=== PATIENT | female | born 1940 | race Caucasian/White ===

== ENCOUNTER 2022-10-12 11:13 | Outpatient (REF) | payer MEDICARE, SELFPAY ==
--- NOTE | ~2022-10-12 | US_ITS ---
EXAMINATION: US RETROPERITONEAL LIMITED (RENAL ONLY) CLINICAL INFORMATION: Gross hematuria. COMPARISON: Pelvic ultrasound same date. TECHNIQUE: Real-time imaging of the kidneys. FINDINGS: RIGHT KIDNEY: 11.4 x 4.7 x 5.8 cm (SAG x AP x TRV). The kidney is normal in size, contour, and echogenicity. Renal cortical thickness is normal. No calculi or focal parenchymal lesions. No hydronephrosis. LEFT KIDNEY: 12.1 x 5.8 x 6.0 cm (SAG x AP x TRV). The kidney is normal in size, contour, and echogenicity. Renal cortical thickness is normal. No calculi or focal parenchymal lesions. No hydronephrosis. There is mild pelvic fullness with suspicion for duplex collecting system. BLADDER: Prevoid bladder volume measures 343 mL and a postvoid bladder volume measures 14.6 mL. There is slight prominence of left uretero vesicle junction on transverse view but not seen on long axis. Underlying lesion is hard to exclude. Consider cystoscopy. 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 No echogenic renal calculi or hydronephrosis. Slight prominent left UV junction. Consider cystoscopy for further evaluation. Alternatively, a CT pelvis with and without contrast with attention to urinary bladder can be performed.
--- NOTE | ~2022-10-12 | US_ITS ---
EXAMINATION: US PELVIS CLINICAL INFORMATION: Vaginal bleeding. 82-year-old, postmenopausal. COMPARISON: None TECHNIQUE: Ultrasound of the pelvis is performed using both transabdominal transducers along with Doppler. FINDINGS: Uterus: The uterus is anteverted and measures 6.0 x 2.7 x 4.2 cm. The double wall endometrial thickness is 0.2 mm. The uterus is smooth in contour and has normal myometrial echogenicity. No visible fibroid. Adnexa: Both ovaries are not visualized, no large adnexal mass is visualized. US/US pelvic complete IMPRESSION: 1. Normal sonographic appearance of the uterus and endometrium. Please note, evaluation is limited in the absence of transvaginal imaging. 2. Both ovaries are not visualized, no large adnexal mass is visualized.
== END 2022-10-12 11:14 | disposition home or self-care (01) ==
LOC: HO.US 11:13
PROVIDERS: PCP Internal Medicine; Visit Provider Urology
DX: R31.0 Gross hematuria (principal); N39.46 Mixed incontinence; N39.8 Other specified disorders of urinary system
CPT/HCPCS: 76775; 76830; 76856

== ENCOUNTER 2023-05-05 12:40 | Outpatient (AMB) | payer MEDICARE, SELFPAY ==
--- NOTE | 2023-05-05 13:22 | AM.OFFWIN_ITS ---
Intake Vital Signs 05/05/23 13:24 BMI Reason not done Patient refused/unable BP 138/80 Blood Pressure Location Rt brachial Position Sitting Pulse 76 Pulse Source Pulse Oximeter Temp 97.9 F Temp Source Temporal Artery Scan Pulse Oximetry (%) 97 Intake Visit Reasons: EP Ear ache RT ear Intake Note: pt is here for c/o RT ear pain Patient Tobacco Use Status: Never used Tobacco Allergies No Known Allergies Allergy (Verified 05/05/23 13:23) Do you need a note to return to daycare/school/sports/work: No HPI EP Ear ache RT ear HPI Details 83-year-old [facility]. Denies any other sick symptoms or recent illnesses. [facility] Social History Patient Tobacco Use Status: Never used Tobacco Review of Systems Const All systems reviewed & are unremarkable except as noted in HPI and below Physical Exam Vital Signs: Last Vital Signs Temp 97.9 F 05/05/23 13:24 Pulse 76 05/05/23 13:24 BP 138/80 05/05/23 13:24 Pulse Ox 97 05/05/23 13:24 Const General: cooperative, healthy appearing, comfortable and no acute distress HEENT Head: Yes normal to inspection and Yes normocephalic Ears: hearing grossly normal bilaterally, TM normal on the left (wax in canal) and TM abnormal (right TM erythematous, bulging) General nose exam: Normal external nose present and Normal nasal mucous membranes and turbinates present Neck Neck: Yes no lymphadenopathy Resp Effort & Inspection: normal respiratory effort and able to speak in complete sentences Skin General skin exam: no rashes or lesions noted Extrem General: Yes no clubbing, cyanosis or edema Psych Appearance: grossly normal Mental Status: mental status grossly normal Speech and movement: Normal speech and movement present Assessment & Plan Assessment & Plan (1) Right acute otitis media: Code(s): H66.91 - Otitis media, unspecified, right ear Plan: Augmentin for right OM. Reviewed indications, use, possible s/e of medication. She has a large amount of cerumen in both ears. I attempted to remove some with a curette, however her ear canals are very sensitive and she could not tolerate this. I advised she utilize Debrox drops otc to soften the wax. She agrees to plan. If she does not improve with treatment she should return to the clinic for further evaluation. Medications: New amoxicillin-pot clavulanate 875-125 mg 1 tab PO BID 14 tabs 0RF 7 days H66.91 - Otitis media, unspecified, right ear Coding Level of Care Code Est Pt Level 3 (32927) Diagnoses Right acute otitis media H66.91
[2023-05-05 13:24] VITALS: BP 138/80; PULSE 76; TEMP 36.6; O2SAT 97
== END 2023-05-05 14:00 | disposition home or self-care (01) ==
PROVIDERS: PCP Internal Medicine; Visit Provider Nurse Practitioner Family
DX: H66.91 Otitis media, unspecified, right ear (principal)
CPT/HCPCS: 99213

== ENCOUNTER 2023-11-23 11:24 | Outpatient (AMB) | payer MEDICARE, SELFPAY ==
--- NOTE | 2023-11-23 11:51 | MHC.OFFWIV ---
Intake Vital Signs 11/23/23 11:52 BMI Reason not done Patient refused/unable BP 160/80 H Blood Pressure Location Lt brachial Position Sitting Pulse 75 Pulse Source Pulse Oximeter Temp 98.0 F Temp Source Temporal Artery Scan Pulse Oximetry (%) 96 Oxygen Delivery Method Room Air Intake Visit Reasons: EP cough [id number] Intake Note: pt is here for cough since Patient Tobacco Use Status: Never used Tobacco Allergies No Known Allergies Allergy (Verified 11/23/23 12:43) Do you need a note to return to daycare/school/sports/work: No HPI EP cough [id number] HPI Details Patient presents for a sick visit. Reporting symptoms of sinus congestion, sore throat and difficulty swallowing. Low-grade fever. No family member is sick. No recent travel. Patient reports symptoms of malaise and fatigue. [facility] Social History Patient Tobacco Use Status: Never used Tobacco Physical Exam Vital Signs: Last Vital Signs Temp 98.0 F 11/23/23 11:52 Pulse 75 11/23/23 11:52 BP 160/80 H 11/23/23 11:52 Pulse Ox 96 11/23/23 11:52 Oxygen Delivery Method Room Air 11/23/23 11:52 Const General: cooperative and healthy appearing Nutritional Appearance: well nourished Orientation/consciousness: patient oriented x3 Limitations: no limitations HEENT Head: Yes normal to inspection Eyes General: appearance normal, both eyes and all related structures Neck Neck: Yes normal visual inspection Chest Chest palpation & inspection: normal palpation of entire chest wall Resp Effort & Inspection: normal respiratory effort Neuro General: patient oriented x3 Assessment & Plan Assessment & Plan (1) Upper respiratory tract infection: Code(s): J06.9 - Acute upper respiratory infection, unspecified Plan: Antibiotics ordered. Increase fluid intake. Tylenol for aches and pains. If symptoms worsen, follow-up here for a recheck. Coding Level of Care Code Est Pt Level 3 (82401) Diagnoses Upper respiratory tract infection J06.9
[2023-11-23 11:52] VITALS: BP 160/80; PULSE 75; TEMP 36.7; O2SAT 96
== END 2023-11-23 12:54 | disposition home or self-care (01) ==
PROVIDERS: PCP Internal Medicine; Visit Provider Internal Medicine
DX: J06.9 Acute upper respiratory infection, unspecified (principal)
CPT/HCPCS: 99213

== ENCOUNTER 2024-01-17 11:43 | Outpatient (AMB) | payer MEDICARE, SELFPAY ==
[2024-01-17 12:19] VITALS: BP 120/80; PULSE 62; O2SAT 98; BMI 37.1
--- NOTE | 2024-01-17 12:19 | A.OFFPC_ITS ---
Vital Signs 01/17/24 12:19 Height 5 ft 1 in Weight 196 lb 6 oz BMI 37.1 BP 120/80 Blood Pressure Location Rt brachial Position Sitting Pulse 62 Pulse Source Pulse Oximeter Pulse Oximetry (%) 98 Oxygen Delivery Method Room Air Intake Visit Reasons: TOUR CONSULTANT Est care Intake Note: pt is here for new patient, est care Odd Shoe Examiner Required: No Allergies No Known Allergies Allergy (Verified 01/17/24 12:19) Medication List - Last Reconciled 01/17/24 by Bhavana Fallon MD anastrozole mg PO ascorbic acid (vitamin C) mg PO coenzyme Q10 (Ultra CoQ10) 75 mg PO DAILY furosemide 20 mg PO DAILY omeprazole mg PO simvastatin mg PO Tobacco use date assessed: 01/17/24 Fall risk assessment: No Falls in past year Last assessed Fall Risk: 01/17/24 Dental Screening Dental Screen Date: 01/17/24 Did you have a dental visit in the last 12 months?: Yes Did you have a dental problem in the last 6 months where you did not have access to dental care?: No Was dental information given to patient?: Patient has dentist HPI TOUR CONSULTANT Est care HPI Details Pt presents for TOUR CONSULTANT visit. She used to see a doctor in [place] but moved to [place] recently. Past medical history includes hyperlipidemia chronic GERD lower extremity edema controlled on current medications. She was diagnosed with right breast cancer status post lumpectomy and has been taking anastrozole. Patient follows up with [facility]. [facility] Surgical History H/O: knee surgery S/P appendectomy Family History Mother Diabetes Father Heart problem Social History (Updated 01/17/24 @ 13:32 by Bhavana Fallon MD) Household Members Other:: Lives alone, , 4 children, Alcohol intake: never Patient Tobacco Use Status: Never used Tobacco Cognitive needs: No Hearing needs: No Vision needs: No Questionnaire PHQ-9 Over the last 2 weeks, how often have you been bothered by any of the following problems? 1. Little interest or pleasure in doing things: not at all 2. Feeling down, depressed, or hopeless: not at all 3. Trouble falling or staying asleep, or sleeping too much: not at all 4. Feeling tired or having little energy: not at all 5. Poor appetite or overeating: not at all 6. Feeling bad about yourself - or that you are a failure or have let yourself or your family down: not at all 7. Trouble concentrating on things, such as reading the newspaper or watching television: not at all 8. Moving or speaking so slowly that other people could have noticed. Or the opposite - being so fidgety or restless that you have been moving around a lot more than usual: not at all 9. Thoughts that you would be better off or of hurting yourself in some way: not at all Total score: 0 Depression Screening Interpretation: Negative Depression Screening Done: Yes 83771 - PHQ-9 Billing: Yes Source: Developed by Drs. Andrew Munoz, Keeley Trinidad, Mike lAaniz and colleagues, with an educational jeanette from [email or web address]. Thrive Questionnaire Date Thrive assessed: 01/17/24 I am a: Patient What is your living situation today?: I have a steady place to live Within the past 12 months, did the food you bought not last and you didn't have the money to get more?: Never true Within the past 12 months, did you worry whether your food would run out before you got money to buy more?: Never true Do you have trouble paying for medicines?: No Do you have trouble getting transportation to medical appointments?: No Do you have trouble paying your heating and electricity bill?: No Do you have trouble taking care of your child, family member or friend?: No Do you have trouble with day-to-day activities such as bathing, preparing meals, shopping, managing finances, etc.?: No Are you currently unemployed and looking for a job?: No Are you interested in more education?: No Please select the resources that you would like help with: None Currently or been in a relationship where the following occur: no concerns reported THRIVE Score: 0 AUDIT C Alcohol Use Questionnaire (AUDIT-C) 1. How often do you have a drink containing alcohol?: Never 3. How often do you have six or more drinks on one occasion?: Never Total Score: 0 Score Reviewed/Action Taken: Yes SOHAIL-7 AMB Questionnaire SOHAIL-7 Date SOHAIL - 7 assessed: 01/17/24 Feeling nervous, anxious, or on edge: 0 = Not at all Not being able to stop or control worryin = Not at all Worrying too much about different things: 0 = Not at all Trouble relaxin = Not at all Being so restless that it is hard to sit still: 0 = Not at all Becoming easily annoyed or irritable: 0 = Not at all Feeling afraid as if something awful might happen: 0 = Not at all Total SOHAIL-7 score (0-4 normal; 5-9 mild; 10-14 moderate; 15-21 severe): 0 Source: Developed by Drs. Andrew Munoz, Keeley Trinidad, Mike Alaniz and colleagues, with an educational jeanette from [email or web address]. SOHAIL-7 Assessment Billing SOHAIL-7 Assessment Tool: SOHAIL-7 Assessment 18243 Review of Systems Const All systems reviewed & are unremarkable except as noted in HPI and below Eyes Reports no additional complaints ENT Reports no additional complaints Card Reports no additional complaints Resp Reports no additional complaints GI Reports no additional complaints Reports no additional complaints Physical exam (Primary Care) Vital Signs: Last Vital Signs Pulse 62 01/17/24 12:19 BP 140/90 H 01/17/24 12:19 Pulse Ox 98 01/17/24 12:19 Oxygen Delivery Method Room Air 01/17/24 12:19 BMI result Body Mass Index 37.1 Tobacco/Smoking Status: Tobacco use Status Tobacco use date assessed 01/17/24 01/17/24 12:24 Patient Tobacco Use Status Never used Tobacco 01/17/24 12:24 PHQ-9: PHQ-9 Score PHQ-9: Total score 0 01/17/24 12:24 Depression Screening Interpretation: Negative Thrive Assessment: Date of Thrive Assessment Date Thrive assessed 01/17/24 01/17/24 12:24 Currently or been in a relationship where the following occur: no concerns reported Const General: no acute distress HENMT Head: Yes normal to inspection Ears: hearing grossly normal bilaterally General nose exam: Normal external nose present Face and sinus: Yes normal facial exam Throat: Yes posterior oropharynx normal Eyes General: appearance normal, both eyes and all related structures Resp Effort & Inspection: normal respiratory effort Auscultation: clear to auscultation bilaterally Cardio Rhythm: regular rhythm Heart sounds: S1 normal heart sound present and S2 normal heart sound present GI Inspection: Yes normal to inspection Palpation (GI): Soft to palpation Percussion: Yes normal to percussion Auscultation: normal bowel sounds Assessment and Plan Assessment & Plan (1) Breast CA: Comment: R breast 07/08 f/u [facility] on Anastrazole Code(s): C50.919 - Malignant neoplasm of unspecified site of unspecified female breast Plan: Follow-up with oncology (2) Hyperlipidemia: Code(s): E78.5 - Hyperlipidemia, unspecified Plan: Continue statin (3) Edema: Code(s): R60.9 - Edema, unspecified Plan: Continue Lasix (4) GERD (gastroesophageal reflux disease): Code(s): K21.9 - Gastro-esophageal reflux disease without esophagitis Plan: Continue PPI (5) Overweight: Code(s): E66.3 - Overweight (6) Heart murmur: Comment: Echo at [facility] will obtain results Code(s): R01.1 - Cardiac murmur, unspecified Plan: Obtain records from [facility] (7) Vitamin D deficiency: Code(s): E55.9 - Vitamin D deficiency, unspecified Orders: Orders Complete Blood Count Auto Diff 4 Months C50.919 - Malignant neoplasm of unspecified site of unspecified female breast, E78.5 - Hyperlipidemia, unspecified, R60.9 - Edema, unspecified Vitamin D 25-OH (D2 and D3) 4 Months E55.9 - Vitamin D deficiency, unspecified Comprehensive Stout. Panel Fast Today C50.919 - Malignant neoplasm of unspecified site of unspecified female breast, E78.5 - Hyperlipidemia, unspecified, R60.9 - Edema, unspecified Lipid Panel 4 Months C50.919 - Malignant neoplasm of unspecified site of unspecified female breast, E78.5 - Hyperlipidemia, unspecified, R60.9 - Edema, unspecified TSH reflex Free T4 4 Months C50.919 - Malignant neoplasm of unspecified site of unspecified female breast, E78.5 - Hyperlipidemia, unspecified, R60.9 - Edema, unspecified Coding Level of Care Code New Pt Level 4 (61176) Diagnoses Breast CA C50.919 Hyperlipidemia E78.5 Edema R60.9 GERD (gastroesophageal reflux disease) K21.9 Overweight E66.3 Heart murmur R01.1 Vitamin D deficiency E55.9 Additional Codes SOHAIL-7 Assessment Billing - SOHAIL-7 Assessment Tool: SOHAIL-7 Assessment 45459 ([id number])
== END 2024-01-17 13:12 | disposition home or self-care (01) ==
PROVIDERS: PCP Internal Medicine; Visit Provider Internal Medicine
DX: C50.919 Malignant neoplasm of unspecified site of unspecified female breast (principal); E78.5 Hyperlipidemia, unspecified; R60.9 Edema, unspecified; K21.9 Gastro-esophageal reflux disease without esophagitis; E66.3 Overweight; R01.1 Cardiac murmur, unspecified; E55.9 Vitamin D deficiency, unspecified
CPT/HCPCS: 99204; 99214

== ENCOUNTER 2024-04-29 09:25 | Outpatient (AMB) | payer MEDICARE, SELFPAY ==
--- NOTE | 2024-04-29 10:12 | AM.OFFWIN_ITS ---
Intake Vital Signs 04/29/24 10:23 Weight 195 lb BP 136/80 Blood Pressure Location Rt brachial Position Sitting Pulse 76 Pulse Source Pulse Oximeter Temp 98.6 F Temp Source Oral Pulse Oximetry (%) 97 Oxygen Delivery Method Room Air Intake Visit Reasons: EP cough, aches Intake Note: Patient here for cough that started Wednesday and worsened by , fatigue and body aches. Patient Tobacco Use Status: Never used Tobacco Allergies No Known Allergies Allergy (Verified 04/29/24 10:24) Do you need a note to return to daycare/school/sports/work: No HPI HPI Comments History of Present Illness Details 84 y/o female patient who presents to [facility] walk in clinic with c/o cough, SOB and wheezing since Wednesday. [facility] Surgical History H/O: knee surgery S/P appendectomy Family History Mother Diabetes Father Heart problem Social History (Updated 01/17/24 @ 13:32 by Bhavana Fallon MD) Household Members Other:: Lives alone, , 4 children, Alcohol intake: never Patient Tobacco Use Status: Never used Tobacco Cognitive needs: No Hearing needs: No Vision needs: No Review of Systems Const All systems reviewed & are unremarkable except as noted in HPI and below Physical Exam Vital Signs: Last Vital Signs Temp 98.6 F 04/29/24 10:23 Pulse 76 04/29/24 10:23 BP 136/80 04/29/24 10:23 Pulse Ox 97 04/29/24 10:23 Oxygen Delivery Method Room Air 04/29/24 10:23 Const General: cooperative and comfortable Nutritional Appearance: obese Orientation/consciousness: patient oriented x3 HEENT Head: Yes normocephalic Ears: external ears normal and TM's normal bilaterally General nose exam: Normal external nose present Face and sinus: Yes sinuses nontender Mouth: moist mucous membranes Throat: Yes postnasal drainage Resp Effort & Inspection: normal respiratory effort, able to speak in complete sentences and Actively coughing Auscultation: no crackles, no rales, rhonchi and wheezes Cardio Heart sounds: S1 normal heart sound present and S2 normal heart sound present Neuro General: patient oriented x3, gait normal and moves all extremities Psych Speech and movement: Normal speech and movement present Assessment & Plan Assessment & Plan (1) Upper respiratory tract infection: Code(s): J06.9 - Acute upper respiratory infection, unspecified Qualifiers: URI type: unspecified URI Qualified Code(s): J06.9 - Acute upper respiratory infection, unspecified Plan: Ordered SARs (2) Cough in adult: Code(s): R05.9 - Cough, unspecified Plan: OTC cough remedies Hydrate with warm water Orders: Orders SARS-CoV2/FLU/RSV Today J06.9 - Acute upper respiratory infection, unspecified Medications: New benzonatate 100 mg PO TID 90 caps 0RF R05.9 - Cough, unspecified prednisone 50 mg PO DAILY 5 tabs 0RF 5 days doxycycline hyclate 100 mg PO BID 20 caps 0RF 10 days J06.9 - Acute upper respiratory infection, unspecified, R05.9 - Cough, unspecified Coding Level of Care Code Est Pt Level 3 (96451) Diagnoses Upper respiratory tract infection, unspecified type J06.9 URI type: unspecified URI Cough in adult R05.9 Time Spent (min) 15
[2024-04-29 10:23] VITALS: BP 136/80; PULSE 76; TEMP 37; O2SAT 97
== END 2024-04-29 10:53 | disposition home or self-care (01) ==
PROVIDERS: PCP Internal Medicine; Visit Provider Nurse Practitioner Family
DX: J06.9 Acute upper respiratory infection, unspecified (principal); R05.9 Cough, unspecified
CPT/HCPCS: 99213

== ENCOUNTER 2024-04-29 10:23 | Outpatient (REF) | payer MEDICARE, SELFPAY ==
[2024-04-29 12:22] LABS: Influenza A PCR NEGATIVE (Negative); Influenza B PCR NEGATIVE (Negative); Resp Syncy Virus RNA Qual PCR NEGATIVE (Negative); SARS COV2 PCR INHOUSE NEGATIVE (Negative)
== END 2024-04-29 10:24 | disposition home or self-care (01) ==
LOC: HO.LNP 10:23
PROVIDERS: Visit Provider Nurse Practitioner Family
DX: J06.9 Acute upper respiratory infection, unspecified (principal)
CPT/HCPCS: 0241U

== ENCOUNTER 2024-10-30 11:21 | Outpatient (AMB) | payer MEDICARE, SELFPAY ==
--- NOTE | 2024-10-30 12:02 | A.OFFVIS_ITS ---
Intake Vital Signs 10/30/24 12:03 Height 5 ft 1 in Weight 194 lb BMI 36.7 BP 136/76 Blood Pressure Location Lt brachial Position Sitting Respiration 20 Pulse 72 Pulse Source Pulse Oximeter Temp 98.4 F Temp Source Oral Pulse Oximetry (%) 96 Oxygen Delivery Method Room Air Intake Visit Reasons: SWV G0439 Allergies No Known Allergies Allergy (Verified 10/30/24 12:03) Medication List - Last Reconciled 10/30/24 by Bhavana Fallon MD amoxicillin 2,000 mg (4 x 500 mg) PO ONCE anastrozole mg PO ascorbic acid (vitamin C) mg PO coenzyme Q10 (Ultra CoQ10) 75 mg PO DAILY furosemide 20 mg PO DAILY omeprazole 20 mg PO DAILY simvastatin 10 mg PO DAILY HPI SWV G0439 HPI Details Initiated the conversation about Advanced Directives. Advanced Directives help? patients prepare for current and future decisions about their medical treatment? and place of care. Discussed with patient that it is a process where a patients? current condition and prognosis are reviewed, their wishes for information? regarding their illness are elicited, and likely medical dilemmas are presented? and options discussed. The form can be amended as ne eded, reviewed yearly and? make changes as needed IPPE/AWV ? year old presents? for her ? Annual? Wellness Visit, initial visit.? Medical / Social History Reviewed? Past Medical History ?Yes? . ? [place]? of Care / Care Team list updated ?Yes . ? Surgical/Hospitalization? History ?Yes . ? Current Medications? (including OTC and supplements) ?Yes . ? Family History ?Yes? . ? Tobacco? Control form ?Yes . ? AUDIT-C (Alcohol use) form? ?Yes . ? Illicit drug use in Social? History ?Yes . ? Current diagnosis of? depression? ?No ? Appropriate PHQ2/PHQ9? completed ?Yes . ? Data entered by ?Medical? Retort Loader and reviewed by provider ? Fall Risk ? Fall? History? Have you had any falls with? injury in the past year? ?No . ? Have you had two or more? falls in the past year? ?No . ? Fall Risk Assessment: ?No? falls in the past year . ? HRA filled out by? the patient, reviewed by Provider and scanned. ? IPPE/AWV ? Balance? [place]? ?Yes . ? Tandem? walk ?Yes . ? Walk and? Turn ?Yes . ? Rise from? sit to stand ?Yes . ?Vision? Corrective? lens ?Yes ? Vision? screen ? Up-to-date, has an appointment [] for vision? screening and glaucoma screening ?Hearing? Whisper? test ?pass .? Initiated the conversation about Advanced Directives. Advanced Directives help? patients prepare for current and future decisions about their medical treatment? and place of care. Discussed with patient that it is a process where a patients? current condition and prognosis are reviewed, their wishes for information? regarding their illness are elicited, and likely medical dilemmas are presented? and options discussed. The form can be amended as needed, reviewed yearly and? make changes as needed Written? Plan?Completed. See Patient? Documents. [facility] Surgical History H/O: knee surgery S/P appendectomy Family History Mother Diabetes Father Heart problem Social History (Updated 01/17/24 @ 13:32 by Bhavana Fallon MD) Household Members Other:: Lives alone, , 4 children, Alcohol intake: never Patient Tobacco Use Status: Never used Tobacco Cognitive needs: No Hearing needs: No Vision needs: No Questionnaire Medicare Wellness Checkup What is your age?: 78 or older What gender do you identify with?: female During the past 4 weeks, how much have you been bothered by emotional problems such as feeling anxious, depressed, irritable, sad or downhearted, and blue?: slightly During the past 4 weeks, has your physical & emotional health limited your social activities with family, friends, neighbors, or groups?: not at all During the past 4 weeks, how much bodily pain have you generally had?: mild pain During the past 4 weeks, was someone available to help you if you needed & wanted help?: yes, some During the past 4 weeks, what was the hardest physical activity you could do for at least 2 minutes?: moderate Can you get to places out of walking distance without help? (For eg., can you travel alone on buses, taxis or drive your car?): Yes Can you go shopping for groceries or clothes without someone's help?: Yes Can you prepare your own meals?: Yes Can you do your housework without help?: Yes Because of any health problems, do you need the help of another person with your personal care needs such as eating, bathing, dressing or getting around the house?: No Can you handle your own money without help?: Yes During the past 4 weeks, how would you rate your health in general?: good During the past 4 weeks how have things been going for you?: pretty well Are you having difficulties driving your car?: no Do you always fasten your seat belt when you are in a car?: yes, usually During past 4 weeks, have you been bothered by the following: never: Sexual problems?, Trouble eating well? and Problems using the telephone? and seldom: Falling or dizzy when standing up, Teeth or denture problems? and Tiredness or fatigue? Have you fallen 2 or more times in the past year?: No Are you afraid of falling?: Yes Are you a smoker?: no During the past 4 weeks, how many drinks of wine, beer, or other alcoholic beverages did you have?: no alcohol at all Do you exercise for about 20 minutes 3 or more times a week?: no, I usually do not exercise this much Have you been given information to help with the following?: yes: Hazards in your house that might hurt you? and no: Keeping track of your medications? How often do you have trouble taking medicines the way you have been told to take them?: I always take medicine as prescribed How confident are you that you can control & manage most of your health problems?: very confident What is your race?: White Mini Mental State Exam (MMSE) Orientation What is the (year) (season) (date) (day) (month)?: year, season, date, day and month Where are we (state) (county) (town or city) (hospital) (floor)?: state, county, town or city, hospital/clinic and floor Registration Name of 3 unrelated objects clearly and slowly, then ask patient to repeat all 3 of them. (1st repeat determines score. Make sure they can repeat all three): object 1, object 2 and object 3 Attention & Calculation (CHOOSE ONE) Spell WORLD backwards (DLROW): 5 letters Recall Ask patient to repeat the 3 items from question #3.: object 1, object 2 and object 3 Language Show patient a wristwatch & ask what it is. Repeat for pencil.: watch and pencil Ask the patient to repeat the phrase 'No ifs, ands, or buts' after you.: correct Ask the patient to 'take a piece of paper with their right hand' 'fold paper in half' 'place paper on floor': take paper in right hand, fold paper in half and place paper on floor Print the sentence 'CLOSE YOUR EYES' on a piece. If patient actually closes eyes then score.: followed written direction Give patient a blank piece of paper & ask to write a sentence. Score if it contains a noun & verb.: sentence contains subject and verb Score Score: 29 Activity of Daily Living Bathing - sponge bath, tub bath or shower: receives no assistance (gets in/out by self, if usual bathing means Dressing - getting clothes from closets & drawers, including inner/outer garments & fasteners.: gets clothes & gets completely dressed without help Toileting - going to the 'toilet room' for urine/bowel elimination & cleaning self/arranging clothes: goes to toilet room, cleans self, arranges clothes without help Transfer: moves in & out of bed and chair without help (may use support object) Continence: controls urination/bowel movements completely by self Feeding: feeds self without help Total Score: 0 Information obtained from: patient Using telephone: independent Traveling: independent Shopping: independent Preparing meals: independent Housework: independent Taking medicine: independent Managing money: independent PHQ-9 Over the last 2 weeks, how often have you been bothered by any of the following problems? 1. Little interest or pleasure in doing things: not at all 2. Feeling down, depressed, or hopeless: not at all 3. Trouble falling or staying asleep, or sleeping too much: not at all 4. Feeling tired or having little energy: not at all 5. Poor appetite or overeating: not at all 6. Feeling bad about yourself - or that you are a failure or have let yourself or your family down: not at all 7. Trouble concentrating on things, such as reading the newspaper or watching television: not at all 8. Moving or speaking so slowly that other people could have noticed. Or the opposite - being so fidgety or restless that you have been moving around a lot more than usual: not at all 9. Thoughts that you would be better off or of hurting yourself in some way: not at all Total score: 0 Depression Screening Interpretation: Negative Depression Screening Done: Yes 57803 - PHQ-9 Billing: Yes Source: Developed by Drs. Andrew Munoz, Keeley Trinidad, Mike Alaniz and colleagues, with an educational jeanette from [employer]. Review of Systems Const All systems reviewed & are unremarkable except as noted in HPI and below Eyes Reports no additional complaints ENT Reports no additional complaints Card Reports no additional complaints Resp Reports no additional complaints GI Reports no additional complaints Reports no additional complaints Physical Exam Vital Signs: Last Vital Signs Temp 98.4 F 10/30/24 12:03 Pulse 72 10/30/24 12:03 Resp 20 10/30/24 12:03 BP 136/76 10/30/24 12:03 Pulse Ox 96 10/30/24 12:03 Oxygen Delivery Method Room Air 10/30/24 12:03 BMI result Body Mass Index 36.7 Const General: no acute distress HEENT Head: Yes normal to inspection Ears: hearing grossly normal bilaterally Eyes General: appearance normal, both eyes and all related structures Neck Neck: Yes no lymphadenopathy and Yes supple Resp Effort & Inspection: normal respiratory effort Auscultation: clear to auscultation bilaterally Cardio Rhythm: regular rhythm Heart sounds: S1 normal heart sound present and S2 normal heart sound present Extrem General: Yes no clubbing, cyanosis or edema Assessment & Plan Assessment & Plan (1) Breast CA: Comment: R breast 07/08, L breast 08/2024, s/p lumpectomy INTRADUCTAL CARCINOMA, f/u [facility] Oncology on Anastrazole Code(s): C50.919 - Malignant neoplasm of unspecified site of unspecified female breast Plan: f/u with oncology (2) Hyperlipidemia: Code(s): E78.5 - Hyperlipidemia, unspecified Plan: Continue statin (3) Vitamin D deficiency: Code(s): E55.9 - Vitamin D deficiency, unspecified Plan: Continue vitamin-D (4) DM type 2 (diabetes mellitus, type 2): Comment: A1C 7.9 12/2023 [facility], Code(s): E11.9 - Type 2 diabetes mellitus without complications Plan: ADA diet increase physical activity weight loss discussed with the patient. She will return for fasting blood work including A1c. Patient declined taking medications for diabetes. She will return in 6 months with a fasting labs before (5) Osteopenia: Comment: DEXA AT [facility] 2023, the lowest T score -2.1, zoledronic acid infusion by [facility] oncology Code(s): M85.80 - Other specified disorders of bone density and structure, unspecified site Plan: Continue vitamin-D supplement and weight-bearing exercise Orders: Orders Hemoglobin A1c Today C50.919 - Malignant neoplasm of unspecified site of unspecified female breast, E55.9 - Vitamin D deficiency, unspecified, E78.5 - Hyperlipidemia, unspecified, R73.9 - Hyperglycemia, unspecified Microalbumin, Random (w Creat) Today C50.919 - Malignant neoplasm of unspecified site of unspecified female breast, E55.9 - Vitamin D deficiency, unspecified, E78.5 - Hyperlipidemia, unspecified, R73.9 - Hyperglycemia, unspecified TSH reflex Free T4 Today C50.919 - Malignant neoplasm of unspecified site of unspecified female breast, E55.9 - Vitamin D deficiency, unspecified, E78.5 - Hyperlipidemia, unspecified, R73.9 - Hyperglycemia, unspecified Vitamin D 25-OH Total Today C50.919 - Malignant neoplasm of unspecified site of unspecified female breast, E55.9 - Vitamin D deficiency, unspecified, E78.5 - Hyperlipidemia, unspecified, R73.9 - Hyperglycemia, unspecified Hemoglobin A1c 6 Months C50.919 - Malignant neoplasm of unspecified site of unspecified female breast, E11.9 - Type 2 diabetes mellitus without complications, E66.3 - Overweight, R73.9 - Hyperglycemia, unspecified Comprehensive [place]. Panel Fast 6 Months C50.919 - Malignant neoplasm of unspecified site of unspecified female breast, E11.9 - Type 2 diabetes mellitus without complications, E66.3 - Overweight, R73.9 - Hyperglycemia, unspecified Comprehensive [place]. Panel Fast Today C50.919 - Malignant neoplasm of unspecified site of unspecified female breast, E55.9 - Vitamin D deficiency, unspecified, E78.5 - Hyperlipidemia, unspecified, R73.9 - Hyperglycemia, unspecified Complete Blood Count Auto Diff Today C50.919 - Malignant neoplasm of unspecified site of unspecified female breast, E55.9 - Vitamin D deficiency, unspecified, E78.5 - Hyperlipidemia, unspecified, R73.9 - Hyperglycemia, unspecified Lipid Panel Today C50.919 - Malignant neoplasm of unspecified site of unspecified female breast, E55.9 - Vitamin D deficiency, unspecified, E78.5 - Hyperlipidemia, unspecified, R73.9 - Hyperglycemia, unspecified Lipid Panel 6 Months C50.919 - Malignant neoplasm of unspecified site of unspecified female breast, E11.9 - Type 2 diabetes mellitus without complications, E66.3 - Overweight, R73.9 - Hyperglycemia, unspecified Quality Reporting (2019) Depression/Bipolar (159/160/161/177) PHQ-9: Total score: 0 Coding Level of Care Code Medicare Subsequent (G0439) Diagnoses Breast CA C50.919 Hyperlipidemia E78.5 Vitamin D deficiency E55.9 DM type 2 (diabetes mellitus, type 2) E11.9 Osteopenia M85.80 CPT Codes Advance Care Planning - Advance Care Planning discussion: On file, no changes ([id number]) Advance Care Planning - Time spent: 1-15 minutes, on File ([id number]) Additional Codes PHQ-9 - 16949 - PHQ-9 Billing: Yes ([id number]) Advance Care Planning Advance Care Planning discussion: On file, no changes Forms completed: Health Care Proxy Time spent: 1-15 minutes, on File Did not discuss due to Cultural/Spiritual beliefs: Yes
[2024-10-30 12:03] VITALS: BP 136/76; PULSE 72; RESP 20; TEMP 36.9; O2SAT 96; BMI 36.7
== END 2024-10-30 12:54 | disposition home or self-care (01) ==
LOC: HO.HMCC 11:21
PROVIDERS: PCP Internal Medicine; Visit Provider Internal Medicine
DX: Z00.00 Encounter for general adult medical examination without abnormal findings (principal); C50.919 Malignant neoplasm of unspecified site of unspecified female breast; E11.69 Type 2 diabetes mellitus with other specified complication; E78.5 Hyperlipidemia, unspecified; E55.9 Vitamin D deficiency, unspecified; M85.80 Other specified disorders of bone density and structure, unspecified site

== ENCOUNTER → 2024-10-30 11:21 | Outpatient (BNVA) | payer MEDICARE, SELFPAY | PROVIDERS: PCP Internal Medicine; Visit Provider Internal Medicine | DX: Z00.00 Encounter for general adult medical examination without abnormal findings (principal); C50.919 Malignant neoplasm of unspecified site of unspecified female breast; E78.5 Hyperlipidemia, unspecified; E55.9 Vitamin D deficiency, unspecified; E11.9 Type 2 diabetes mellitus without complications; M85.80 Other specified disorders of bone density and structure, unspecified site | CPT/HCPCS: 96127 ==

== ENCOUNTER 2024-11-23 09:50 | Outpatient (REF) | payer MEDICARE, SELFPAY ==
[2024-11-23 13:34] LABS: MANUAL DIFF FLAG NO
[2024-11-23 13:43] LABS: Basophils Absolute Auto 0.1 X10*3/uL (0.0-0.2); Basophils Percent Auto 0.9 % (0-2); Eosinophils Absolute Auto 0.1 X10*3/uL (0.0-0.4); Eosinophils Percent Auto 0.7 % (0-4); Hematocrit 39.4 % (37.0-47.0); Hemoglobin 12.4 g/dl (12.0-16.0); Imm Gran Abs Auto 0.02 X10*3/uL (0.00-0.03); Imm Gran Pct Auto 0.3 % (0.0-0.4); Lymphocytes Absolute Auto 1.2 X10*3/uL (1.2-4.9); Lymphocytes Percent Auto 17.2 % (20-40); Mean Corpuscular HGB Conc 31.5 g/dl (31.0-35.0); Mean Corpuscular Hemoglobin 29.1 pg (27.0-33.0); Mean Corpuscular Volume 92.5 fL (80.0-98.0); Mean Platelet Volume 11.5 fL (9.4-12.3); Monocytes Absolute Auto 0.4 X10*3/uL (0.1-1.2); Monocytes Percent Auto 5.7 % (2-11); Neutrophils Absolute Auto 5.3 x10*3/uL (2.0-8.3); Neutrophils Percent Auto 75.2 % (45-73); Platelet Count 256 X10*3/uL (160-400); Red Blood Count 4.26 X10*6/uL (4.20-5.50); Red Cell Distribution Width 13.7 % (11.0-16.0)
[2024-11-23 13:56] LABS: Estimated Average Glucose 114 mg/dL; Hemoglobin A1C 127.2163 umol/L; Hemoglobin A1c % 5.6 % (<6.0); Total Hemoglobin (HGBA1C) 3377.4334 umol/L
[2024-11-23 14:17] LABS: Creatinine Urine 31.38 mg/dL; Microalbum/Creatinine Ratio Ur 159.3 ug/mg cr (<30)
[2024-11-23 14:20] LABS: Alanine Aminotransferase 16 U/L (0-31); Albumin Level 3.9 g/dL (3.5-5.0); Anion Gap 11 (12-20); Aspartate Amino Transferase 25 U/L (5-31); Bilirubin Total 0.4 mg/dL (0.0-1.0); Blood Urea Nitrogen 17 mg/dL (9-16); Calcium 9.1 mg/dL (8.4-10.2); Carbon Dioxide 27 mmol/L (22-29); Chloride 110 mmol/L (96-108); Cholesterol 161 mg/dL (<200); Estimated Glomerular Filt Rate > 60; Glucose Fasting 87 mg/dL (60-99); HDL Cholesterol 64 mg/dL (>40); LDL Cholesterol Calculated 84 mg/dL (<100); Potassium 3.7 mmol/L (3.3-5.1); Sodium 144 mmol/L (135-145); TSH reflex Free T4 1.94 uIU/mL (0.32-4.0); Total Protein 6.5 g/dL (6.5-8.0); Triglycerides 66 mg/dL (<150); Vitamin D 25-OH Total 35.8 ng/mL (>30)
[2024-11-23 14:25] LABS: Alkaline Phosphatase 89 U/L (39-117)
== END 2024-11-23 09:51 | disposition home or self-care (01) ==
LOC: HO.HMGCLDS 09:50
PROVIDERS: PCP Internal Medicine; Visit Provider Internal Medicine
DX: C50.919 Malignant neoplasm of unspecified site of unspecified female breast (principal); E78.5 Hyperlipidemia, unspecified; E55.9 Vitamin D deficiency, unspecified; E66.3 Overweight; E11.9 Type 2 diabetes mellitus without complications
CPT/HCPCS: 36415; 80053; 80061; 82043; 82306; 82570; 83036; 84443; 85025

== ENCOUNTER 2025-01-24 09:25 | Outpatient (REF) | payer MEDICARE, SELFPAY ==
--- OUTSIDE RECORDS SUMMARY | 2025-01-24 10:14 | XMS_ITS | Patient Health Record ---
Author Organization [facility] Onelia brijesh [place] Address [address] [place] [address] Care Team Providers Care New Car Get Ready Mechanic Name Role Phone Bryce TREJO, Yaneli Primary Care Provider Unav ailable Matt Holley Unavailable [phone] Reason For Referral No Information Medications Medication SIG (Take, Route, Fr equency, Duration) Notes Start Date End Date Status Omeprazole 20 MG 1 capsule 30 minutes before morning meal Orally Once a day for 30 day(s) Active Simvastatin 20 MG 1 tablet in the even ing Orally Once a day for 30 day(s) Active Social History Tobacco Use: Social History Observation Description Date Details (start date - stop date) Never Smoker NA - NA Tobacco Use/Smoking Question Answer Notes Are you a: nonsmoker Problems Problem Type SNOMED Code ICD Code Onset Dates Problem Status W/U Status Risk Notes Problem Acquired hammer toe of right foot (9411151083532 105) Other hammer toe(s) (acquired), right foot (M20.41) Active confirmed Problem Acquired hammer toe of left foot ([id number] 103) Other hammer toe(s) (acquired), left foot (M20.42) Active confirmed Plan Of Treatment No Information Insurance Providers Payer Name Payer Address Payer Phone Subscriber Number Group Number Insured Name Patient Relationship to Insured Coverage Start Date Coverage End Date Medicare National Govt [employer] [address] [place] [address] [id number] Lyric Colon Self - patient is the insured [employer] [address] [place] [address] [id number] Lyric Colon Self - patient is the insured Medical (General) History Medical History History ICD Code Arthritis Back,Hip,and Knee pain Cataracts Gall bladder problems Measles Mumps Chicken pox Bone implants/screws appendix Surgical History Surgery Date(Month/Year) appendectomy 1952 gall bladder 1977 knee replacement 2000 knee replacement 2009 thoracie 2000
[2025-01-24 10:46] LABS: B Type Natriuretic Peptide 30 pg/mL (<100)
[2025-01-24 11:06] LABS: Anion Gap 11 (12-20); Blood Urea Nitrogen 14 mg/dL (9-16); Calcium 9.3 mg/dL (8.4-10.2); Carbon Dioxide 27 mmol/L (22-29); Chloride 107 mmol/L (96-108); Estimated Glomerular Filt Rate > 60; Glucose Random 93 mg/dL (60-115); Sodium 141 mmol/L (135-145)
== END 2025-01-24 09:26 | disposition home or self-care (01) ==
LOC: HO.HMGCLDS 09:25
PROVIDERS: PCP Internal Medicine; Visit Provider Internal Medicine Cardiovascular Disease
DX: I83.813 Varicose veins of bilateral lower extremities with pain (principal)
CPT/HCPCS: 36415; 80048; 83880

== ENCOUNTER 2025-04-30 11:23 | Outpatient (AMB) | payer MEDICARE, SELFPAY ==
[2025-04-30 11:31] VITALS: BP 130/76; PULSE 70; RESP 18; TEMP 37; O2SAT 96; BMI 35.9
--- NOTE | 2025-04-30 11:31 | A.OFFPC_ITS ---
Vital Signs 04/30/25 11:31 Height 5 ft 1 in Weight 190 lb BMI 35.9 BP 130/76 Blood Pressure Location Lt brachial Position Sitting Respiration 18 Pulse 70 Pulse Source Pulse Oximeter Temp 98.6 F Temp Source Oral Pulse Oximetry (%) 96 Oxygen Delivery Method Room Air Intake Visit Reasons: 6m follow up Intake Note: Pt is here today for 6 months follow up visit. Allergies No Known Allergies Allergy (Verified 04/30/25 11:32) Medication List - Last Reconciled 04/30/25 by Bhavana Fallon MD amoxicillin 2,000 mg (4 x 500 mg) PO ONCE anastrozole mg PO ascorbic acid (vitamin C) mg PO coenzyme Q10 (Ultra CoQ10) 75 mg PO DAILY furosemide 20 mg PO DAILY omeprazole 20 mg PO DAILY simvastatin 10 mg PO DAILY Tobacco use date assessed: 04/30/25 Fall risk assessment: No Falls in past year Last assessed Fall Risk: 04/30/25 Dental Screening Dental Screen Date: 04/30/25 Did you have a dental visit in the last 12 months?: Yes Did you have a dental problem in the last 6 months where you did not have access to dental care?: No Was dental information given to patient?: Patient has dentist HPI 6m follow up HPI Details Pt presents for f/u hyperlipid, chronic GERD and lower extremity edema controlled on current medications. She is established with Oncology for breast CA and has been taking anastrozole PFSH Medical History (Updated 04/30/25 @ 12:02 by Bhavana Fallon MD) Breast CA Osteopenia Vitamin D deficiency Hyperlipidemia Surgical History (Updated 04/30/25 @ 11:59 by Bhavana Fallon MD) H/O: knee surgery S/P appendectomy Family History Mother Diabetes Father Heart problem Social History Household Members Other:: Lives alone, , 4 children, Housing: House Alcohol intake: never Patient Tobacco Use Status: Never used Tobacco e-Cigarette/Vaping Use: Never Used service: No Current occupational status: retired Current occupational exposures/hazards: No Cognitive needs: No Hearing needs: No Vision needs: No Questionnaire PHQ-9 Over the last 2 weeks, how often have you been bothered by any of the following problems? 1. Little interest or pleasure in doing things: not at all 2. Feeling down, depressed, or hopeless: not at all 3. Trouble falling or staying asleep, or sleeping too much: not at all 4. Feeling tired or having little energy: not at all 5. Poor appetite or overeating: not at all 6. Feeling bad about yourself - or that you are a failure or have let yourself or your family down: not at all 7. Trouble concentrating on things, such as reading the newspaper or watching television: not at all 8. Moving or speaking so slowly that other people could have noticed. Or the opposite - being so fidgety or restless that you have been moving around a lot more than usual: not at all 9. Thoughts that you would be better off or of hurting yourself in some way: not at all Total score: 0 Depression Screening Interpretation: Negative Depression Screening Done: Yes 76728 - PHQ-9 Billing: Yes Source: Developed by Drs. Andrew Munoz, Keeley Trinidad, Mike Alaniz and colleagues, with an educational jeanette from [employer]. Thrive Questionnaire Date Thrive assessed: 04/30/25 I am a: Patient What is your living situation today?: I have a steady place to live Within the past 12 months, did the food you bought not last and you didn't have the money to get more?: Never true Within the past 12 months, did you worry whether your food would run out before you got money to buy more?: Never true Do you have trouble paying for medicines?: No Do you have trouble getting transportation to medical appointments?: No Do you have trouble paying your heating and electricity bill?: No Do you have trouble taking care of your child, family member or friend?: No Do you have trouble with day-to-day activities such as bathing, preparing meals, shopping, managing finances, etc.?: No Are you currently unemployed and looking for a job?: No Are you interested in more education?: No Please select the resources that you would like help with: None THRIVE Score: 0 AUDIT C Alcohol Use Questionnaire (AUDIT-C) 1. How often do you have a drink containing alcohol?: Never 3. How often do you have six or more drinks on one occasion?: Never Total Score: 0 SOHAIL-7 AMB Questionnaire SOHAIL-7 Date SOHAIL - 7 assessed: 04/30/25 Feeling nervous, anxious, or on edge: 0 = Not at all Not being able to stop or control worryin = Not at all Worrying too much about different things: 0 = Not at all Trouble relaxin = Not at all Being so restless that it is hard to sit still: 0 = Not at all Becoming easily annoyed or irritable: 0 = Not at all Feeling afraid as if something awful might happen: 0 = Not at all Total SOHAIL-7 score (0-4 normal; 5-9 mild; 10-14 moderate; 15-21 severe): 0 Source: Developed by Drs. Andrew Munoz, Keeley Trinidad, Mike Alaniz and colleagues, with an educational jeanette from [employer]. SOHAIL-7 Assessment Billing SOHAIL-7 Assessment Tool: SOHAIL-7 Assessment 08987 Review of Systems Const All systems reviewed & are unremarkable except as noted in HPI and below ENT Reports no additional complaints Card Reports no additional complaints Resp Reports no additional complaints GI Reports no additional complaints Reports no additional complaints Musc Reports no additional complaints Physical exam (Primary Care) Vital Signs: Last Vital Signs Temp 98.6 F 04/30/25 11:31 Pulse 70 04/30/25 11:31 Resp 18 04/30/25 11:31 BP 130/76 04/30/25 11:31 Pulse Ox 96 04/30/25 11:31 Oxygen Delivery Method Room Air 04/30/25 11:31 BMI result Body Mass Index 35.9 Tobacco/Smoking Status: Tobacco use Status Tobacco use date assessed 04/30/25 04/30/25 11:38 Patient Tobacco Use Status Never used Tobacco 04/30/25 11:38 e-Cigarette/Vaping Use Never Used 04/30/25 11:38 PHQ-9: PHQ-9 Score PHQ-9: Total score 0 04/30/25 11:53 Depression Screening Interpretation: Negative Thrive Assessment: Date of Thrive Assessment Date Thrive assessed 04/30/25 04/30/25 11:38 Const General: no acute distress HENMT Head: Yes normal to inspection Eyes General: appearance normal, both eyes and all related structures Neck Neck: Yes supple Resp Effort & Inspection: normal respiratory effort Auscultation: clear to auscultation bilaterally Cardio Rhythm: regular rhythm Heart sounds: S1 normal heart sound present and S2 normal heart sound present GI Inspection: Yes normal to inspection Palpation (GI): Soft to palpation Percussion: Yes normal to percussion Auscultation: normal bowel sounds Immunizations pneumoc 20-tanya conj-dip cr(PF) 0.5 mL IM syringe Performing Provider: Bhavana Fallon MD Performing Location: [facility] Administered by: EDIE Olivares on 04/30/25 12:09 Dose Route Admin Location Dispensed Lot Number Expiration Date [facility] Bench [employer]eler 0.5 mL IM Right Deltoid 0.5 mL [id number] 03/15/26 2819-8874-45 [place] [employer] Total Dispensed Waste 0.5 mL 0 % VIS Given Date VIS Provided VIS Publication Date 04/30/25 Single Vaccine 25 Eligibility Eligibility Date Funding Source Not [facility] Eligible 04/30/25 Private Coding Level of Care Code Est Pt Level 4 (88494) Diagnoses Hyperlipidemia E78.5 Hyperglycemia R73.9 Breast CA C50.919 Vitamin D deficiency E55.9 Additional Codes SOHAIL-7 Assessment Billing - SOHAIL-7 Assessment Tool: SOHAIL-7 Assessment 66437 ([id number]) PHQ-9 - 65029 - PHQ-9 Billing: Yes ([id number]) Assessment & Plan Assessment & Plan (1) Hyperlipidemia: Code(s): E78.5 - Hyperlipidemia, unspecified Category: Medical Plan: Continue statin (2) Hyperglycemia: Code(s): R73.9 - Hyperglycemia, unspecified Category: Medical Plan: A1c was 5.6, continue ADA diet increase physical activity (3) Breast CA: Comment: R breast 07/08, L breast 08/2024, s/p lumpectomy INTRADUCTAL CARCINOMA, f/u [facility] Oncology on Anastrazole Code(s): C50.919 - Malignant neoplasm of unspecified site of unspecified female breast Category: Medical Plan: Follow-up with oncology (4) Vitamin D deficiency: Code(s): E55.9 - Vitamin D deficiency, unspecified Category: Medical Plan: Continue vitamin-D Orders: Orders Comprehensive Hagan. Panel Fast 6 Months E55.9 - Vitamin D deficiency, unspecified, E78.5 - Hyperlipidemia, unspecified, R73.9 - Hyperglycemia, unspecified Hemoglobin A1c 6 Months E55.9 - Vitamin D deficiency, unspecified, E78.5 - Hyperlipidemia, unspecified, R73.9 - Hyperglycemia, unspecified Complete Blood Count Auto Diff 6 Months E55.9 - Vitamin D deficiency, unspecified, E78.5 - Hyperlipidemia, unspecified, R73.9 - Hyperglycemia, unspecified Vitamin D 25-OH Total 6 Months E55.9 - Vitamin D deficiency, unspecified Pneumococcal 20 Immunization Today Z23 - Encounter for immunization TSH reflex Free T4 6 Months E55.9 - Vitamin D deficiency, unspecified, E78.5 - Hyperlipidemia, unspecified, R73.9 - Hyperglycemia, unspecified
--- OUTSIDE RECORDS SUMMARY | 2025-04-30 15:34 | XMS_ITS | Patient Health Record ---
Author Organization [facility] Onelia brijesh NiceBryan Address [address] [place] [address] Care Team Providers Care Asic Engineer Name Role Phone Bryce TREJO, Yaneli Primary Care Provider Unav ailable Matt Holley Unavailable [phone] Reason For Referral No Information Medications Medication SIG (Take, Route, Fr equency, Duration) Notes Start Date End Date Status Omeprazole 20 MG 1 capsule 30 minutes before morning meal Orally Once a day; Duration: 30 day(s) Active Simvastatin 20 MG 1 tablet in the even ing Orally Once a day; Duration: 30 day(s) Active Social History Tobacco Use: Social History Observation Description Date Details (start date - stop date) Never Smoker NA - NA Tobacco Use/Smoking Question Answer Notes Are you a: nonsmoker Problems Problem Type SNOMED Code ICD Code Onset Dates Problem Status W/U Status Risk Notes Problem Acquired hammer toe of right foot (4205319760706 105) Other hammer toe(s) (acquired), right foot (M20.41) Active confirmed Problem Acquired hammer toe of left foot ([id number] 103) Other hammer toe(s) (acquired), left foot (M20.42) Active confirmed Plan Of Treatment No Information Insurance Providers Payer Name Payer Address Payer Phone Subscriber Number Group Number Insured Name Patient Relationship to Insured Coverage Start Date Coverage End Date Medicare [facility] [place] [employer] [address] [place] [address] [id number] Lyric Colon Self - patient is the insured [employer] [address] [place] [address] [id number] Lyric Colon Self - patient is the insured Medical (General) History Medical History History ICD Code Arthritis Back,Hip,and Knee pain Cataracts Gall bladder problems Measles Mumps Chicken pox Bone implants/screws appendix Surgical History Surgery Date(Month/Year) appendectomy 1952 gall bladder 1977 knee replacement 2000 knee replacement 2009 thoracie 2000
--- OUTSIDE RECORDS SUMMARY | 2025-04-30 15:35 | XMS_ITS | Clinical Summary ---
Author Organization [facility] Address [address] [place] [id number] Phone Care Team Providers Care Technical Marketing Consultant Name Role Phone Bhavana Arriaga MD Primary Care Provi peggy Active Problems Problem Noted Date Diagnosed Date Claudication in peripheral vascular disease 06/18 Assessment & Plan (07/15/2020 11:25 AM EST): Some of her symptoms are arterial I have ordered her a lower extremity arterial duplex with iliac imaging I will see her thereafter in follow-up. 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 Not on dahlia e 12/19/2022 Are you concerned about learning? Not on file 12/19/2022 No 12/19/2022 No 12/19/2022 Digital Access Answer Date Recorded No 01/10/2023 No 01/10/2023 Reliable internet access at home? Not on file 01/10/2023 Device with a working camera? Not on file Comments Unknown Sex and Gender Information Value Date Recorded Sex Assigned at Not on file Legal Sex Female 5:48 PM EST Gender Identity Not on file Sexual Orientation Not on file Last Filed Vital Signs Vital Sign Reading Time Taken Comments Blood Pressure 152/90 07/15/2020 11:15 AM EST Pulse 73 07/15/2020 11:15 AM EST Temperature - - Respiratory Rate - - Oxygen Saturation 97% 07/15/2020 11:15 AM EST Inhaled Oxygen Concentration - - Weight 83.6 kg (184 lb 6.4 oz) 07/15/2020 11:15 AM EST Height - - Body Mass Index - - Plan of Treatment Health Maintenance Due Date Last Done Comments DEPRESSION SCREENING 1950 ZOSTER VACCINES (1 of 2) 02/11/1988 OSTEOPOROSIS SCREENING INITIAL (ONE-TIME) 2003 PNEUMOCOCCAL VACCINES (50+ years) (2 of 2 - PCV) 07/24/2009 07/24/2008 RSV VACCINE (1 - 1-dose 75+ series) 2013 Adult Td,Tdap Booster 09/21/2023 09/21/2013 INFLUENZA VACCINE (#1) 2025 0, 05/16/2014, 05/19/2013, Additional history exists COVID-19 VACCINE (2 - season) 2025 09/18/2020 HEPATITIS A VACCINES Aged Out No long er eligible based on patient's age to complete this topic HIB VACCINES Aged Out No longer eligi ble based on patient's age to complete this topic MENINGOCOCCAL VACCINES (ACWY) Aged Out No longer eligible based on patient's age to complete this topic MENINGOCOCCAL VACCINES (B) Aged Out N o longer eligible based on patient's age to complete this topic Medical Devices Not on file Insurance MEDICARE PART A & B Mlog MEDEX SUPPLEMENT MEDICARE PART A & B Mlog MEDEX SUPPLEMENT MEDICARE PART A & B Mlog MEDEX SUPPLEMENT MEDICARE PART A & B Mlog MEDEX SUPPLEMENT MEDICARE PART A & B BLUE [employer]OSS MEDEX SUPPLEMENT MEDICARE PART A & B [employer] CROSS MEDEX SUPPLEMENT MEDICARE PART A & B [employer] CROSS MEDEX SUPPLEMENT MEDICARE PART A & B Mlog MEDEX SUPPLEMENT MEDICARE PART A & B [employer] CROSS MEDEX SUPPLEMENT Care Teams Technical Marketing Consultant Relationship Specialty Start Date End Date Bhavana Arriaga MD [address] [place] [address] PCP - General 08/19/17 Additional Source Comments The information contained in this document represents components of the legal health record. It is not the complete legal health record.[facility]
== END 2025-04-30 12:51 | disposition home or self-care (01) ==
LOC: HO.HMCC 11:24
PROVIDERS: PCP Internal Medicine; Visit Provider Internal Medicine
DX: E78.5 Hyperlipidemia, unspecified (principal); R73.9 Hyperglycemia, unspecified; C50.919 Malignant neoplasm of unspecified site of unspecified female breast; E55.9 Vitamin D deficiency, unspecified; Z23 Encounter for immunization

== ENCOUNTER → 2025-04-30 11:23 | Outpatient (BNVA) | payer MEDICARE, SELFPAY | PROVIDERS: PCP Internal Medicine; Visit Provider Internal Medicine | DX: E78.5 Hyperlipidemia, unspecified (principal); Z23 Encounter for immunization; R73.9 Hyperglycemia, unspecified; E55.9 Vitamin D deficiency, unspecified; C50.919 Malignant neoplasm of unspecified site of unspecified female breast | CPT/HCPCS: 90471; 90677; 96127; 99212 ==